=== PATIENT | male | born 1950 | race Caucasian/White ===

== ENCOUNTER 2017-04-24 12:46 | Emergency (ER) | payer OTHER ==
[~2017-04-24] VITALS: Ht 175.3 cm; Wt 86.2 kg
--- NOTE | 2017-04-24 14:49 | ED MVC/FALL/TRAUMA COMPLAINT ---
History of Present Illness General Chief Complaint: Fall Stated Complaint: FELL OFF LADDER 1100, HX L HIP REPLACEMENT Source: patient Exam Limitations: no limitations Vital Signs & Intake/Output Vital Signs & Intake/Output Vital Signs Date Time Temp Pulse Resp B/P B/P Pulse O2 O2 Flow FiO2 Mean Ox Delivery Rate 04/24 1537 98.2 75 16 146/79 92 Room Air 04/24 1317 97.2 88 18 119/72 98 Room Air Room Air Allergies Coded Allergies: MDX - Codeine (CODEINE) (Severe, NIGHTMARES 01/09/13) Triage Note: PT STATES HE FELL 8 FEET FROM LADDER ONTO LEFT HIP AND ELBOW. REPORTS 8/10 PAIN TO LEFT HIP. Triage Nurses Notes Reviewed? yes Onset: Abrupt Duration: constant Timing: single episode today Severity: severe Severity Numbers: 7 Method of Injury: direct blow, fall HPI: Patient is a 66-year-old male with a past medical history of type 2 diabetes hypertension and hyperlipidemia and a proximal knee 10 years ago of a left-sided hip replacement performed by orthopedic DR. FOX who presents emergency room today while on a ladder in a standing position the ladder gave out in which patient fell to the ground patient landed on the left aspect of body resulting cute onset of left localized lateral hip pain. Patient denies any head strike or head trauma denies any neck or back pain denies any upper extremity pain or knee or ankle pain. Denies any abdominal pain or chest pain shortness of breath Skin intact no bleeding Patient was able to ambulate with a cane with moderate pain to the left hip (Driss Finch) Past History Travel History Traveled to [place] past 21 day No Medical History Any Pertinent Medical History? see below for history Cardiovascular: hypertension, hyperlipidemia Respiratory: bronchitis Endocrine: diabetes Surgical History Surgical History: LEFT HIP REPLACEMENT Psychosocial History What is your primary language Icelandic Tobacco Use: Current Daily Use Daily Tobacco Use Amount/Type: =< 4 Cigarettes daily Family History Hx Contributory? No (Driss Finch) Review of Systems Review of Systems Constitutional: Reports: no symptoms. Eyes: Reports: no symptoms. Ears, Nose, Throat, Mouth: Reports: no symptoms. Respiratory: Reports: no symptoms. Cardiovascular: Reports: no symptoms. Gastrointestinal/Abdominal: Reports: no symptoms. Genitourinary: Reports: no symptoms. Musculoskeletal: Reports: see HPI, joint pain. Skin: Reports: no symptoms. Neurological/Psychological: Reports: no symptoms. All Other Systems: Reviewed and Negative (Ky PILLAI,Driss) Physical Exam Physical Exam General Appearance: no apparent distress, alert, comfortable Head: atraumatic Eyes: Bilateral: normal appearance. Ears, Nose, Throat, Mouth: hearing grossly normal, moist mucous membrane Neck: normal inspection, no midline tenderness Respiratory: no respiratory distress Cardiovascular: regular rate/rhythm Gastrointestinal: normal bowel sounds, soft, non-tender Neurologic/Psych: no motor/sensory deficits, awake, alert Comments: Left hip generalized point tenderness noted patient unable to perform straight leg raise Bilateral upper extremities full active range of motion nontender Left knee normal inspection nontender Core Measures ACS in differential dx? No CVA/TIA Diagnosis No Sepsis Present: No Sepsis Focused Exam Completed? No (Ky PILLAI,Driss) Progress Differential Diagnosis: abd injury, C/T/L spine injury, ext injury, ICH, pelvis injury, pnemothorax, spinal cord injury Plan of Care: Orders Procedure Date/time Status XRY-HIP 2-3 VIEWS, LEFT 04/24 1452 Active XRY-FEMUR, LEFT 2 VIEWS 04/24 1452 Active Patient was initially evaluated off her pain medications and declines Patient has concerns of multiple pelvic fractures discussed results with patient discussed results and patient with Dr. Bello who advised patient to follow up in office and TO have partial weightbearing status Patient and feel comfortable to be safely discharged home in which they have a walker and I strongly advised patient to begin partial weightbearing activities to tolerance and to rest for improvement of the hematoma for the following 48 hours Upon discharge patient looks well no apparent distress and will comply with discharge instructions and had no questions DISCUSSED PT WITH DR YANG Diagnostic Imaging: Viewed by Me: CT Scan. Radiology Impression: acute abnormality, fracture Comments: PATIENT: TL MARCOS PRESENT AGE: 66 PATIENT ACCOUNT NO: [id number] : 52 LOCATION: [facility] ORDERING PHYSICIAN: Driss PILLAI SERVICE DATE: 04/24/17 EXAM TYPE: RAD - XRY-FEMUR, LEFT 2 VIEWS; XRY-HIP 2-3 VIEWS, LEFT EXAMINATION: XR FEMUR, LEFT CLINICAL INFORMATION: History of left hip prosthesis. Trauma. COMPARISON: Same day CT pelvis TECHNIQUE: AP and lateral views of the left femur were obtained. FINDINGS: Fractures of the superior and inferior pubic rami on the left are much better delineated on the same day CT of the pelvis. The patient is status post left hip total arthroplasty. Acetabular component and femoral components appear normally located. There is no significant evidence of hardware loosening. Radiographs of the left femur demonstrate no fracture. Incidental note made of vascular calcifications (femoral artery). IMPRESSION: Left pelvic fractures better delineated on earlier CT. No evidence of hardware loosening of the left total hip arthroplasty. Intact left femur. DICTATED BY: Ophelia Naqvi MD DATE/TIME DICTATED:04/24/171527 SHOE TRIMMER:AGATHA DATE/TIME TRANSCRIBED:04/24/171527 CONFIDENTIAL, DO NOT COPY WITHOUT APPROPRIATE AUTHORIZATION. PATIENT: TL MARCOS JR PRESENT AGE: 66 PATIENT ACCOUNT NO: [id number] : 52 LOCATION: [facility] ORDERING PHYSICIAN: Sylvia PILLAI SERVICE DATE: 04/24/17 EXAM TYPE: CAT - CT PELVIS WO IV CONTRAST EXAMINATION: CT PELVIS WITHOUT CONTRAST CLINICAL INFORMATION: 66-year-old male, status post fall, complaining of left hip pain. COMPARISON: None TECHNIQUE: Helical scanning was performed with submillimeter collimation through the pelvis. Sagittal and coronal multiplanar 2-D reconstructions were obtained. DLP: 927.68 mGy-cm FINDINGS: PELVIS: There is a total left hip arthroplasty present. Both the femoral as well as the acetabular components show satisfactory alignment and appear intact. Minimally displaced acute fracture is noted involving the left superior pubic ramus and left inferior pubic ramus with adjacent soft tissue hematoma. Subtle cortical radiolucency is noted along the anterior inferior medial aspect of the left iliac bone at the inferior-most part of the left SI joint without any adjacent soft tissue hematoma, may represent a subtle nondisplaced fracture. Both SI joints appear fused. There is a well-corticated radiolucency identified along the inferior part of the left iliac bone above the level of the acetabulum (see the bhatt images; image #[id number] series 2), likely represent a vascular groove. Note is also made of a significant soft tissue hematoma within the mid to inferior part of the left lateral pelvic wall, and also within the anteroinferior, medial aspect of the left upper thigh within the musculature. Significant multilevel degenerative spondylosis-related changes are noted within the visualized lower lumbosacral spine including extensive facet joint arthritic changes. Moderate diffuse osteopenia is noted involving all the visualized bones. The right hip joint and the visualized part of the proximal right femur appear intact. The visualized bowel loops appear decompressed. There is an exophytic cortical hypodensity present at the inferior pole of the right kidney with Hounsfield value of 9, consistent with a cyst measuring 3.5 cm at its maximum dimension. Atherosclerotic disease is noted within the aorta and its branches without aneurysm formation. The urinary bladder is unremarkable; however, the base of the bladder is displaced by enlarged prostate which measures approximately 6.5 x 5.0 cm at its maximum transverse by anteroposterior dimension. There is no free fluid and/or free air present. IMPRESSION: 1. The total left hip arthroplasty shows satisfactory alignment and appears intact. 2. Acute minimally displaced fractures involving the left superior and inferior pubic rami, associated with adjacent soft tissue hematoma. 3. Subtle nondisplaced fracture involving inferior medial aspect of the left iliac bone just inferior to the left SI joint without any adjacent hematoma. Evidence of fusion of both SI joints. 4. Significant soft tissue hematoma along the left inferior hemipelvis. 5. Enlarged prostate. This critical result was discussed with Dr. Yang at 2:17 PM on 04/24/2017 and it was ascertained that the content and urgency of the report was understood at the time of direct communication. DICTATED BY: Agustin Gonzalez MD DATE/TIME DICTATED:04/24/171354 SHOE TRIMMER:AGATHA DATE/TIME TRANSCRIBED:04/24/171354 (Driss Finch) Departure Departure Disposition: HOME OR SELF CARE Condition: Stable Clinical Impression Primary Impression: Fracture of superior ramus of left pubis Secondary Impressions: Closed fracture of inferior pubic ramus, Pelvic hematoma Referrals: Dulce MOODY,Choco Castro (PCP/Family) Kaia MOODY,Jan Additional Instructions: As discussed if symptoms worsen or if YOU develop a new concerning symptom return to emergency room. Begin [id number] Motrin or Tylenol for pain BEGIN TO use and your walker you have at home for partial weightbearing as tolerated status YOU CAN TOLERATE FOR YOUR PAIN. On Wednesday please follow-up with orthopedic The following 48 hours begin to rest to improve your symptoms Departure Forms: Customer Survey General Discharge Information (Dirss Finch) PA/AUTOMOTIVE ENGINEERING TECHNICIAN Co-Sign Statement Statement: ED Attending supervision documentation- [x] I saw and evaluated the patient. I have also reviewed all the pertinent lab results and diagnostic results. I agree with the findings and the plan of care as documented in the PA's/AUTOMOTIVE ENGINEERING TECHNICIAN's documentation. [] I have reviewed the ED Record and agree with the PA's/AUTOMOTIVE ENGINEERING TECHNICIAN's documentation. [] Additions or exceptions (if any) to the PAs/AUTOMOTIVE ENGINEERING TECHNICIAN's note and plan are summarized below: [] (Carlo Yang DO)
--- NOTE | 2017-04-24 15:04 | CT SCAN REPORT ---
EXAMINATION: CT PELVIS WITHOUT CONTRAST CLINICAL INFORMATION: 66-year-old male, status post fall, complaining of left hip pain. COMPARISON: None TECHNIQUE: Helical scanning was performed with submillimeter collimation through the pelvis. Sagittal and coronal multiplanar 2-D reconstructions were obtained. DLP: 927.68 mGy-cm FINDINGS: PELVIS: There is a total left hip arthroplasty present. Both the femoral as well as the acetabular components show satisfactory alignment and appear intact. Minimally displaced acute fracture is noted involving the left superior pubic ramus and left inferior pubic ramus with adjacent soft tissue hematoma. Subtle cortical radiolucency is noted along the anterior inferior medial aspect of the left iliac bone at the inferior-most part of the left SI joint without any adjacent soft tissue hematoma, may represent a subtle nondisplaced fracture. Both SI joints appear fused. There is a well-corticated radiolucency identified along the inferior part of the left iliac bone above the level of the acetabulum (see the bhatt images; image #[id number] series 2), likely represent a vascular groove. Note is also made of a significant soft tissue hematoma within the mid to inferior part of the left lateral pelvic wall, and also within the anteroinferior, medial aspect of the left upper thigh within the musculature. Significant multilevel degenerative spondylosis-related changes are noted within the visualized lower lumbosacral spine including extensive facet joint arthritic changes. Moderate diffuse osteopenia is noted involving all the visualized bones. The right hip joint and the visualized part of the proximal right femur appear intact. The visualized bowel loops appear decompressed. There is an exophytic cortical hypodensity present at the inferior pole of the right kidney with Hounsfield value of 9, consistent with a cyst measuring 3.5 cm at its maximum dimension. Atherosclerotic disease is noted within the aorta and its branches without aneurysm formation. The urinary bladder is unremarkable; however, the base of the bladder is displaced by enlarged prostate which measures approximately 6.5 x 5.0 cm at its maximum transverse by anteroposterior dimension. There is no free fluid and/or free air present. IMPRESSION: 1. The total left hip arthroplasty shows satisfactory alignment and appears intact. 2. Acute minimally displaced fractures involving the left superior and inferior pubic rami, associated with adjacent soft tissue hematoma. 3. Subtle nondisplaced fracture involving inferior medial aspect of the left iliac bone just inferior to the left SI joint without any adjacent hematoma. Evidence of fusion of both SI joints. 4. Significant soft tissue hematoma along the left inferior hemipelvis. 5. Enlarged prostate. This critical result was discussed with Dr. Robertson at 2:17 PM on 04/24/2017 and it was ascertained that the content and urgency of the report was understood at the time of direct communication.
--- NOTE | 2017-04-24 15:34 | RADIOLOGY REPORT ---
EXAMINATION: XR FEMUR, LEFT CLINICAL INFORMATION: History of left hip prosthesis. Trauma. COMPARISON: Same day CT pelvis TECHNIQUE: AP and lateral views of the left femur were obtained. FINDINGS: Fractures of the superior and inferior pubic rami on the left are much better delineated on the same day CT of the pelvis. The patient is status post left hip total arthroplasty. Acetabular component and femoral components appear normally located. There is no significant evidence of hardware loosening. Radiographs of the left femur demonstrate no fracture. Incidental note made of vascular calcifications (femoral artery). IMPRESSION: Left pelvic fractures better delineated on earlier CT. No evidence of hardware loosening of the left total hip arthroplasty. Intact left femur.
[2017-04-24 15:37] VITALS: BP 146/79
== END 2017-04-24 15:58 ==
LOC: ERH 12:46
DX: S32.502A Unspecified fracture of left pubis, initial encounter for closed fracture (principal); S30.0XXA Contusion of lower back and pelvis, initial encounter; W11.XXXA Fall on and from ladder, initial encounter
CPT/HCPCS: 73502-LT; 73552